=== PATIENT | male | born 1950 ===

== ENCOUNTER 2018-11-23 13:19 | Outpatient (CLI) | payer OTHER | END 2018-11-23 13:24 | disposition home or self-care (01) | LOC: LAB 13:19 | DX: N20.0 Calculus of kidney (principal); Z51.81 Encounter for therapeutic drug level monitoring ==

== ENCOUNTER 2018-11-25 07:50 | Outpatient (CLI) | payer OTHER | END 2018-11-25 08:02 | disposition home or self-care (01) | LOC: TOM 07:50 | DX: C18.8 Malignant neoplasm of overlapping sites of colon (principal) ==

== ENCOUNTER → 2018-12-03 | Outpatient (CLI) | payer OTHER | END | disposition home or self-care (01) | LOC: NUCLEAR 07:00 | DX: C18.9 Malignant neoplasm of colon, unspecified (principal) | CPT/HCPCS: 78815; A9552 ==